=== PATIENT | male | born 1950 | race Caucasian/White ===

== ENCOUNTER 2023-03-10 18:29 | Emergency (ER) | payer MEDICARE, OTHER ==
[2023-03-10 19:06] VITALS: TEMP 98
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
[2023-03-10] MEDS ORDERED: HYDROmorphone 1 MG/ML 1 ML SYRINGE IM STA (19:54)
--- NOTE | 2023-03-10 21:21 | XR ---
EXAMINATION TYPE: XR ankle complete LT DATE OF EXAM: 03/10/2023 7:17 PM CLINICAL INDICATION:Male, 72 years old with history of injury; [facility] COMPARISON: None TECHNIQUE: The left ankle is imaged in frontal, lateral and oblique projections. FINDINGS: Osseous mineralization appears appropriate. There is an oblique fracture through the distal fibular s haft above the level of the ankle mortise with the major distal fragment displaced laterally about 7 mm, this travels along with the talus. There is significant subluxation of the distal tibia medially at the ankle joint with the medial clear space widened up to 16 mm. No definite fracture of the dista l tibia or the talar dome is seen. Small to moderate dorsal and plantar calcaneal spurs. Suspect mode rate sized ankle joint effusion and there is soft tissue swelling about the ankle. No radiopaque fore ign body is seen. IMPRESSION: 1. Acute oblique displaced fracture through the distal fibular shaft with the major distal fragment displaced laterally. 2. Significant subluxation of the distal tibia medially at the ankle joint.
[2023-03-10] MEDS ORDERED: ACET/COD 300 MG/30 MG STARTER PACK 6 TAB BTL PO STA (21:44)
[2023-03-10 22:22] VITALS: BP 124/76; PULSE 74; RESP 18
--- NOTE | 2023-03-10 23:05 | XR ---
EXAMINATION TYPE: XR ankle limited LT DATE OF EXAM: 03/10/2023 9:13 PM CLINICAL INDICATION:Male, 72 years old with history of fall; [facility] COMPARISON: Earlier same day radiographs of 7:13 PM TECHNIQUE: The left ankle is imaged in frontal and lateral projections. FINDINGS: Splint has been placed about the ankle limiting fine details. Redemonstration of oblique fracture thr ough the distal fibular shaft with the major distal fragment displaced laterally about 4 mm, versus 7 mm before. There remains disruption of the ankle mortise with significant subluxation of the distal tibia medially at the ankle joint. The medial clear space is again widened, but appears slightly impr flo now measuring about 14 mm versus 16 mm before. On lateral view tiny chip fractures at the anteri or and/or posterior aspects of the distal tibia are not excluded. Remainder of the the exam is unchan ged. IMPRESSION: Status post reduction and splinting, with minimally improved alignment of the distal fibular fracture and ankle mortise, as described.
== END 2023-03-10 22:09 | disposition home or self-care (01) ==
LOC: EC 18:29
DX: S93.05XA Dislocation of left ankle joint, initial encounter (principal); S82.892A Other fracture of left lower leg, initial encounter for closed fracture; I10 Essential (primary) hypertension; Z90.49 Acquired absence of other specified parts of digestive tract; V28.99XA Unspecified rider of other motorcycle injured in noncollision transport accident in traffic accident, initial encounter; Y92.410 Unspecified street and highway as the place of occurrence of the external cause
CPT/HCPCS: 73600; 73610; 99283; 96372; 29515; J1170

== ENCOUNTER 2024-04-28 11:09 | Emergency (ER) | payer MEDICARE ==
[2024-04-28 11:19] VITALS: RESP 18
--- NOTE | 2024-04-28 11:39 | ED ---
Dizziness HPI - General Chief Complaint: Dizziness Stated Complaint: Dizziness Time Seen by Provider: 04/28/24 11:17 Source: patient, RN notes reviewed Mode of arrival: wheelchair Limitations: no limitations - History of Present Illness Initial Comments: This is a 74-year-old male presenting with constant dizziness since awakening this morning. Patient endorses similar transient symptoms x 5 days ago after bending over, once in the morning and once in the evening with sensation of presyncope. Patient denies sensation of room spinning or severe dizziness preventing ambulation. Denies chest pain, palpitations, dyspnea, sweating, pallor, nausea/vomiting. Denies unilateral paresthesia, weakness, hearing changes, slurred speech, confusion, AMS, ALOC. MD Complaint: dizziness, near syncope Onset/Timin -: hour(s) Timing: awoke with symptoms Description: sense of movement, off-balance History of Same: No History of Trauma: No Severity: mild Improves With: remaining still Worsens With: position Associated Symptoms: denies other symptoms - Related Data Previous Rx's Medication Instructions Recorded Ibuprofen [Motrin] 600 mg PO Q8HR PRN #20 tab 04/03/17 diazePAM [Valium] 5 mg PO TID PRN #15 tab 04/03/17 Meclizine [Antivert] 25 mg PO Q8H PRN #20 tab 04/28/24 Allergies Allergy/AdvReac Type Severity Reaction Status Date / Time No Known Allergies Allergy Verified 04/28/24 11:13 Review of Systems ROS Statement: Those systems with pertinent positive or pertinent negative responses have been documented in the HPI. ROS Other: All systems not noted in ROS Statement are negative. Past Medical History Past Medical History: Cancer, Hyperlipidemia, Hypertension Additional Past Medical History / Comment(s): colon ca History of Any Multi-Drug Resistant Organisms: None Reported Past Surgical History: Cholecystectomy Additional Past Surgical History / Comment(s): bowel resection for benign tumor Past Psychological History: No Psychological Hx Reported Smoking Status: Never smoker Past Alcohol Use History: Heavy Past Drug Use History: None Reported General Exam Limitations: no limitations General appearance: alert, in no apparent distress Head exam: Present: atraumatic, normocephalic, normal inspection Eye exam: Present: normal appearance, PERRL, EOMI, other (Negative strabismus/nystagmus with hints exam). Absent: scleral icterus, conjunctival in jection, nystagmus, periorbital swelling Pupils: Present: miosis ENT exam: Present: normal exam, mucous membranes moist Neck exam: Present: normal inspection. Absent: tenderness, meningismus, lymphadenopathy Respiratory exam: Present: normal lung sounds bilaterally. Absent: respiratory distress, wheezes, rales, rhonchi, stridor Cardiovascular Exam: Present: regular rate, normal rhythm, normal heart sounds. Absent: systolic murmur, diastolic murmur, rubs, gallop, clicks GI/Abdominal exam: Present: soft, distended, normal bowel sounds. Absent: tenderness, guarding, rebound, rigid Extremities exam: Present: normal inspection, full ROM, normal capillary refill, other (Neurovascular and strength 5/5 in all extremities). Absent: tenderness, pedal edema, joint swelling, calf tenderness Back exam: Present: normal inspection Neurological exam: Present: alert, oriented X3, CN II-XII intact, normal gait, other ([place] stroke test negative. [id number]-vebs, TRESA, [id number] normal. Some balance issues with heel-to-toe walk. Patient notes increased dizziness when moving head of bed from supine to Fowlers position) Psychiatric exam: Present: normal affect, normal mood Skin exam: Present: warm, dry, intact, normal color. Absent: rash, diaphoretic, pallor Course Vital Signs 04/28/24 11:14 Temperature 97.6 F Pulse Rate 67 Respiratory 18 Rate Blood Pressure 179/77 O2 Sat by Pulse 97 Oximetry Medical Decision Making - Medical Decision Making Was pt. sent in by a medical professional or institution (, PA, CLINIC MANAGER, urgent care, hospital, or long-term...) When possible be specific @ -[No] Did you speak to anyone other than the patient for history (EMS, parent, family, police, friend...)? What history was obtained from this source @ -[No] Did you review nursing and triage notes (agree or disagree)? Why? @ -[I reviewed and agree with nursing and triage notes] Were old charts reviewed (outside hosp., previous admission, EMS record, old EKG, old radiological studies, urgent care reports/EKG's, long-term records)? Report findings @ -[No old charts were reviewed] Differential Diagnosis (chest pain, altered mental status, abdominal pain women, abdominal pain men, vaginal bleeding, weakness, fever, dyspnea, syncope, headache, dizziness, GI bleed, back pain, seizure, CVA, palpatations, mental health, musculoskeletal)? @ -Differential Dizziness: Benign paroxysmal positional Vertigo, Meniere's disease, otitis media, acoustic neuroma, vertebrobasilar insufficiency, cerebellar stroke, encephalitis, hypovolemic, arrhythmia, coronary artery syndrome, anemia, this is not meant to be an all-inclusive list EKG interpreted by me (3pts min.). @ -Sinus rhythm with left axis deviation. No ST changes or T wave inversion. Ventricular rate 68 bpm, NKECHI 189 ms, QRS duration 102 ms, QTc 428 ms. X-rays interpreted by me (1pt min.). @ -[None done] CT interpreted by me (1pt min.). @ -[None done] U/S interpreted by me (1pt. min.). @ -[None done] What testing was considered but not performed or refused? (CT, X-rays, U/S, labs)? Why? @ -[None] What meds were considered but not given or refused? Why? @ -[None] Did you discuss the management of the patient with other professionals (professionals i.e. , PA, CLINIC MANAGER, lab, RT, psych nurse, social work nurse, drapery hanger, teacher, community service patrol officer, shoe parts caser)? Give summary @ -[No] Was smoking cessation discussed for >3mins.? @ -[No] Was critical care preformed (if so, how long)? @ -[No] Were there social determinants of health that impacted care today? How? (Homelessness, low income, unemployed, alcoholism, drug addiction, transportatio n, low edu. Level, literacy, decrease access to med. care, group home, rehab)? @ -[No] Was there de-escalation of care discussed even if they declined (Discuss DNR or withdrawal of care, Hospice)? DNR status @ -[No] What co-morbidities impacted this encounter? (DM, HTN, Smoking, COPD, CAD, Cancer, CVA, ARF, Chemo, Hep., AIDS, mental health diagnosis, sleep apnea, morbid obesity)? @ -[None] Was patient admitted / discharged? Hospital course, mention meds given and route, prescriptions, significant lab abnormalities, going to OR and other pertinent info. @ -[hospital course] Undiagnosed new problem with uncertain prognosis? @ -[No] Drug Therapy requiring intensive monitoring for toxicity (Heparin, Nitro, Insulin, Cardizem)? @ -[No] Were any procedures done? @ -[No] Diagnosis/symptom? @ -[default] Acute, or Chronic, or Acute on Chronic? @ -Acute Uncomplicated (without systemic symptoms) or Complicated (systemic symptoms)? @ -Complicated Side effects of treatment? @ -[No] Exacerbation, Progression, or Severe Exacerbation? @ -[No] Poses a threat to life or bodily function? How? (Chest pain, [place], [place], pneumonia, PE, COPD, DKA, ARF, appy, cholecystitis, CVA, Diverticulitis, Homicidal, Suicidal, threat to staff... and all critical care pts) @ -[No] - Lab Data Result diagrams: 04/28/24 11:56 04/28/24 11:56 Lab Results 04/28/24 04/28/24 04/28/24 Range/Units 11:56 11:56 11:56 WBC 5.2 (3.8-10.6) k/uL RBC 5.12 (4.30-5.90) m/uL Hgb 16.0 (13.0-17.5) gm/dL Hct 46.2 (39.0-53.0) % MCV 90.2 (80.0-100.0) fL MCH 31.2 (25.0-35.0) pg MCHC 34.6 (31.0-37.0) g/dL RDW 13.4 (11.5-15.5) % Plt Count 217 (150-450) k/uL MPV 7.4 Neutrophils % 55 % Lymphocytes % 31 % Monocytes % 5 % Eosinophils % 6 % Basophils % 1 % Neutrophils # 2.9 (1.3-7.7) k/uL Lymphocytes # 1.6 (1.0-4.8) k/uL Monocytes # 0.3 (0-1.0) k/uL Eosinophils # 0.3 (0-0.7) k/uL Basophils # 0.1 (0-0.2) k/uL PT 10.2 (10.0-12.5) sec INR 0.9 (<1.2) APTT 22.0 (22.0-30.0) sec Sodium 137 (137-145) mmol/L Potassium 5.2 H (3.5-5.1) mmol/L Chloride 105 (98-107) mmol/L Carbon Dioxide 22 (22-30) mmol/L Anion Gap 10 mmol/L BUN 18 (9-20) mg/dL Creatinine 1.07 (0.66-1.25) mg/dL Est GFR (CKD-EPI)AfAm 79 (>60 ml/min/1.73 sqM) Est GFR (CKD-EPI)NonAf 69 (>60 ml/min/1.73 sqM) Glucose 101 H (74-99) mg/dL Plasma Lactic Acid Marcello (0.7-2.0) mmol/L Calcium 9.2 (8.4-10.2) mg/dL Total Bilirubin 1.3 (0.2-1.3) mg/dL AST 32 (17-59) U/L ALT 27 (4-49) U/L Alkaline Phosphatase 53 (38-126) U/L Troponin I (0.000-0.034) ng/mL Total Protein 7.1 (6.3-8.2) g/dL Albumin 4.1 (3.5-5.0) g/dL 04/28/24 04/28/24 Range/Units 11:56 11:56 WBC (3.8-10.6) k/uL RBC (4.30-5.90) m/uL Hgb (13.0-17.5) gm/dL Hct (39.0-53.0) % MCV (80.0-100.0) fL MCH (25.0-35.0) pg MCHC (31.0-37.0) g/dL RDW (11.5-15.5) % Plt Count (150-450) k/uL MPV Neutrophils % % Lymphocytes % % Monocytes % % Eosinophils % % Basophils % % Neutrophils # (1.3-7.7) k/uL Lymphocytes # (1.0-4.8) k/uL Monocytes # (0-1.0) k/uL Eosinophils # (0-0.7) k/uL Basophils # (0-0.2) k/uL PT (10.0-12.5) sec INR (<1.2) APTT (22.0-30.0) sec Sodium (137-145) mmol/L Potassium (3.5-5.1) mmol/L Chloride (98-107) mmol/L Carbon Dioxide (22-30) mmol/L Anion Gap mmol/L BUN (9-20) mg/dL Creatinine (0.66-1.25) mg/dL Est GFR (CKD-EPI)AfAm (>60 ml/min/1.73 sqM) Est GFR (CKD-EPI)NonAf (>60 ml/min/1.73 sqM) Glucose (74-99) mg/dL Plasma Lactic Acid Marcello 1.4 (0.7-2.0) mmol/L Calcium (8.4-10.2) mg/dL Total Bilirubin (0.2-1.3) mg/dL AST (17-59) U/L ALT (4-49) U/L Alkaline Phosphatase (38-126) U/L Troponin I <0.012 (0.000-0.034) ng/mL Total Protein (6.3-8.2) g/dL Albumin (3.5-5.0) g/dL Disposition Clinical Impression: Dizziness of unknown etiology Disposition: HOME SELF-CARE Condition: Good Instructions (If sedation given, give patient instructions): Dizziness (ED) Prescriptions: Meclizine [Antivert] 25 mg PO Q8H PRN #20 tab PRN Reason: Vertigo Is patient prescribed a controlled substance at d/c from ED?: No Referrals: Srriam Correa MD [Primary Care Provider] - 1-2 days Time of Disposition: 14:06
[2024-04-28 12:09] LABS: Basophils # (A) 0.1 k/uL (0-0.2); Basophils % (A) 1 %; Eosinophils # (A) 0.3 k/uL (0-0.7); Eosinophils % (A) 6 %; HCT 46.2 % (39.0-53.0); Lymphocytes # (A) 1.6 k/uL (1.0-4.8); Lymphocytes % (A) 31 %; MCH 31.2 pg (25.0-35.0); MCHC 34.6 g/dL (31.0-37.0); MCV 90.2 fL (80.0-100.0); Mean Platelet Volume 7.4; Monocytes # (A) 0.3 k/uL (0-1.0); Monocytes % (A) 5 %; Neutrophils # (A) 2.9 k/uL (1.3-7.7); Neutrophils % (A) 55 %; Platelet Count 217 k/uL (150-450); RBC 5.12 m/uL (4.30-5.90); RDW 13.4 % (11.5-15.5); WBC 5.2 k/uL (3.8-10.6)
[2024-04-28 12:21] LABS: INR 0.9 (<1.2); Prothrombin Time 10.2 sec (10.0-12.5)
[2024-04-28 12:24] LABS: ALT 27 U/L (4-49); African American GFR (CKD) 79 (>60 ml/min/1.73 sqM); Albumin 4.1 g/dL (3.5-5.0); Anion Gap 10 mmol/L; Blood Urea Nitrogen 18 mg/dL (9-20); Calcium 9.2 mg/dL (8.4-10.2); Carbon Dioxide 22 mmol/L (22-30); Chloride 105 mmol/L (98-107); Glucose 101 mg/dL (74-99); Non-African American GFR(CKD) 69 (>60 ml/min/1.73 sqM); Sodium 137 mmol/L (137-145); Total Bilirubin 1.3 mg/dL (0.2-1.3); Total Protein 7.1 g/dL (6.3-8.2)
[2024-04-28] MEDS: SODIUM CHLORIDE 0.9% 1,000 ML IV STA (12:26)
[2024-04-28] MEDS: MECLIZINE 12.5 MG TAB PO STA (12:26)
[2024-04-28 12:29] LABS: AST 32 U/L (17-59); Alkaline Phosphatase 53 U/L (38-126); Potassium 5.2 mmol/L (3.5-5.1)
--- NOTE | 2024-04-28 12:55 | XR ---
EXAMINATION TYPE: XR chest 2V DATE OF EXAM: 04/28/2024 12:36 PM COMPARISON: 06/21/2011 CLINICAL INDICATION: Male, 74 years old with history of Dizziness, TECHNIQUE: XR chest 2V view(s) obtained. FINDINGS: The heart size is normal. The pulmonary vasculature is normal. The lungs are clear. IMPRESSION: 1. No acute pulmonary process. [facility], , 04/28/2024 12:53 PM
--- NOTE | 2024-04-28 13:07 | CT ---
EXAMINATION TYPE: CT brain wo con DATE OF EXAM: 04/28/2024 12:58 PM COMPARISON: 04/03/2017 CLINICAL INDICATION: Male, 74 years old with history of Dizziness with position change, now constant, Dizziness with position change, now constant TECHNIQUE: CT of the brain is performed utilizing 3 mm thick sections through the posterior fossa and 3 mm thick sections through the remaining calvarium. Study is performed within 24 hours of arrival to the hospital. Contrast used: mL of , (none if empty) CT DLP: 1201.6 mGycm, Automated exposure control for dose reduction was used. FINDINGS: No abnormal hyperdensity is present to suggest an acute intracranial hemorrhage. No mass lesion is evident. No acute infarcts are evident. Ventricles and sulci are appropriate for the patient age. Minimal mucosal thickening within the left maxillary sinus and within scattered ethmoid air cells. IMPRESSION: 1. No acute intracranial process. Follow up MRI can be performed as clinically indicated. [facility], , 04/28/2024 1:04 PM
--- NOTE | 2024-04-28 13:10 | CT ---
EXAMINATION TYPE: CT angio head neck DATE OF EXAM: 04/28/2024 12:58 PM COMPARISON: None. CLINICAL INDICATION: Male, 74 years old with history of Dizziness with position change, now constant, Dizziness with position change, now constant TECHNIQUE: CTA scan is performed with axial images are obtained, coronal and sagittal reformatted darrian ges are reviewed. 3-D reconstructed images are created on an independent workstation and reviewed. [facility] images are reviewed. NASCET criteria was used in interpretation of this exam? Contrast used:65ml mL of Isovue 370 with IV Contrast, (none if empty) Oral contrast used: (none if empty) CT DLP: 879 mGycm, Automated exposure control for dose reduction was used. FINDINGS: Carotid/Vascular Structures: There is a 3 vessel arch. Common carotid arteries bifurcate into internal and external carotid arteries without significant jonny w limiting stenosis. Calcification is at the bilateral carotid bifurcations. Vertebral arteries are codominant. Internal carotid arteries and vertebral arteries are patent to the skull base. Cervical of [place]: Vertebral basilar system appears normal. Posterior cerebral vasculature is unrema rkable. Internal carotid arteries bifurcate normally into A1 and M1 segments. A2 segments are normal. The anterior communicating artery is patent. The right posterior communicating artery is patent. The left posterior communicating artery is patent. IMPRESSION: 1. No flow-limiting stenosis bilateral carotid bifurcations. 2. Normal [place] [facility], , 04/28/2024 1:08 PM
[2024-04-28 14:26] VITALS: BP 161/93; PULSE 59; TEMP 98
== END 2024-04-28 14:25 | disposition home or self-care (01) ==
LOC: EC 11:09
DX: R42 Dizziness and giddiness (principal)
CPT/HCPCS: 36415; 93005; 80053; 83605; 84484; 85025; 85610; 85730; 71046; 70496; 70450; 70498; 99284; 96360; Q9967